=== PATIENT | female | born 1995 | race Caucasian/White ===

== ENCOUNTER 2018-08-15 18:26 | Emergency (ER) | payer OTHER ==
[~2018-08-15] VITALS: Ht 167.6 cm; Wt 68.0 kg
[2018-08-15 18:27] VITALS: BP 125/45; Ht 167.6 cm; Wt 68.0 kg
== END 2018-08-15 19:54 | disposition home or self-care (01) ==
LOC: ED 18:26
DX: S61.233A Puncture wound without foreign body of left middle finger without damage to nail, initial encounter (principal); W46.1XXA Contact with contaminated hypodermic needle, initial encounter; Y93.89 Activity, other specified; Y92.89 Other specified places as the place of occurrence of the external cause; Y99.8 Other external cause status
CPT/HCPCS: 90715